=== PATIENT | female | born 1995 | race Caucasian/White ===

== ENCOUNTER 2017-02-28 11:08 | Emergency (ER) | payer OTHER ==
[2017-02-28] MEDS ORDERED: OXYCODONE-ACETAMINOPHEN 5-325 MG TABLET PO ONE (11:32)
--- NOTE | 2017-02-28 11:35 | ER Document Report ---
HPI - HPI Patient complains to provider of: Right hand injury Onset: Just prior to arrival Onset/Duration: Sudden Quality of pain: Achy Pain Level: 4 Context: Patient states that she had her dog leash wrapped around her right second through fifth fingers and the dog pulled suddenly. Patient complains of pain to her right second and fifth finger patient reports that the ring on her fourth finger is bent and she is unable to remove it. Associated Symptoms: Other - Right hand injury Exacerbated by: Movement Relieved by: Denies Similar symptoms previously: No Recently seen / treated by doctor: No - ROS ROS below otherwise negative: Yes Systems Reviewed and Negative: Yes All other systems reviewed and negative - NEURO Neurology: DENIES: Weakness - CARDIOVASCULAR Cardiovascular: DENIES: Chest pain - GASTROINTESTINAL Gastrointestinal: DENIES: Nausea - MUSCULOSKELETAL Musculoskeletal: REPORTS: Extremity pain, Swelling - DERM Skin Color: Ecchymosis Skin Problems: None Past Medical History - General Information source: Patient - Social History Smoking Status: Current Every Day Smoker Chew tobacco use (# tins/day): No Frequency of alcohol use: None Drug Abuse: None Occupation: None Family History: Reviewed & Not Pertinent - Medical History Medical History: Negative Renal/ Medical History: Denies: Hx Peritoneal Dialysis Surgical Hx: Negative - Immunizations Hx Diphtheria, Pertussis, Tetanus Vaccination: Yes Vertical Provider Document - CONSTITUTIONAL Agree With Documented VS: Yes Exam Limitations: No Limitations General Appearance: WD/WN, No Apparent Distress - INFECTION CONTROL TRAVEL OUTSIDE OF THE [place] IN LAST 30 DAYS: No - HEENT HEENT: Atraumatic, Normocephalic - NECK Neck: Normal Inspection - RESPIRATORY Respiratory: No Respiratory Distress - CARDIOVASCULAR Pulses: Normal: Radial Notes: normal cap refill <3 sec to fingers of right hand - MUSCULOSKELETAL/EXTREMETIES Musculoskeletal/Extremeties: MAEW, Edema - 2+edema to right hand 2nd digit prox phalanx and mcp joint, 1+edema to right 5th prox phalanx, Eccymosis - r 2nd prox phalanx Notes: pt with bent ring on right 4th finger - NEURO Level of Consciousness: Awake, Alert, Appropriate Motor/Sensory: No Motor Deficit - DERM Integumentary: Warm, Dry Course - Re-evaluation Re-evalutation: 02/28/17 12:44 Offered patient immobilization, patient declined - Diagnostic Test Radiology reviewed: Image reviewed, Reports reviewed Discharge - Discharge Clinical Impression: Ecchymosis Injury, crush, finger Qualifiers: Encounter type: initial encounter Qualified Code(s): S67.10XA - Crushing injury of unspecified finger(s), initial encounter Condition: Stable Disposition: HOME, SELF-CARE Instructions: Acetaminophen, Contusion ([facility]), Crush Injury ([facility]), Ice & Elevation ([facility]) Additional Instructions: Return immediately for any new or worsening symptoms Followup with your primary care provider, call tomorrow to make a followup appointment Follow-up with orthopedic doctor for any continued pain or problems Prescriptions: Naproxen [Naprosyn 250 Nmg Tablet] 1 tab PO BID #14 tablet Referrals: [facility] [Provider Group] - Follow up as needed
--- NOTE | 2017-02-28 12:21 | RADIOLOGY REPORT (SQ) ---
EXAM DESCRIPTION: HAND RIGHT 3 VIEWS COMPLETED DATE/TIME: 02/28/2017 11:47 am REASON FOR STUDY: pain COMPARISON: None. EXAM PARAMETERS: NUMBER OF VIEWS: Three views. TECHNIQUE: AP, lateral and oblique radiographic images acquired of the right hand. LIMITATIONS: None. FINDINGS: MINERALIZATION: Normal. BONES: No acute fracture or dislocation. No worrisome bone lesions. JOINTS: No effusions. SOFT TISSUES: There is soft tissue swelling along the right 2nd and 4th fingers without radiopaque fo reign body or soft tissue gas. No adjacent aggressive bony erosions or periostitis worrisome for ost eomyelitis. OTHER: No other significant finding. IMPRESSION: Finger soft tissue swelling along the 2nd and 4th digits without underlying bony irregul arity or radiopaque foreign body TECHNICAL DOCUMENTATION: JOB ID: [id number] [employer]- All Rights Reserved
[2017-02-28] MEDS ORDERED: IBUPROFEN 800 MG TABLET PO ONE (12:27)
[2017-02-28 12:57] VITALS: BP 115/68
== END 2017-02-28 12:57 | disposition home or self-care (01) ==
LOC: ER 11:08
DX: S60.021A Contusion of right index finger without damage to nail, initial encounter (principal); S67.10XA Crushing injury of unspecified finger(s), initial encounter; X58.XXXA Exposure to other specified factors, initial encounter; F17.200 Nicotine dependence, unspecified, uncomplicated
CPT/HCPCS: 99283